=== PATIENT | male | born 1960 | race Caucasian/White ===

== ENCOUNTER 2018-12-30 20:03 | Emergency (ER) | payer OTHER ==
[~2018-12-30] VITALS: Ht 188 cm; Wt 72.6 kg
[~2018-12-30 20:03] MED LIST: ALBU90OI61 INH; LEVFLO500 PO; LOSA25 PO; LOSA50; Lopressor 25 mg25 MG PO; NICO21TP TOP
[2018-12-30 20:40] LABS: BASOPHILS ABSOLUTE AUTO 0.04 K/mm3 (0.00-0.23); BASOPHILS PERCENT AUTO 1 % (0-2); EOSINOPHILS ABSOLUTE AUTO 0.08 K/mm3 (0.00-0.68); EOSINOPHILS PERCENT AUTO 1 % (0-6); Hematocrit 53.5 % (37.0-53.0); Hemoglobin 17.5 g/dL (13.5-17.5); IMMATURE GRAN ABSOLUTE AUTO 0.02 K/mm3 (0.00-0.10); IMMATURE GRAN PERCENT AUTO 0 % (0-1); LYMPHOCYTES ABSOLUTE AUTO 1.74 K/mm3 (0.84-5.20); LYMPHOCYTES PERCENT AUTO 22 % (21-46); MONOCYTES ABSOLUTE AUTO 0.51 K/mm3 (0.16-1.47); MONOCYTES PERCENT AUTO 7 % (4-13); Mean Corpuscular HGB 28.5 pg (26.0-34.0); Mean Corpuscular HGB Conc 32.7 g/dL (31.5-36.5); Mean Corpuscular Volume 87 fL (80-100); Mean Platelet Volume 10.7 fL (9.1-12.4); NEUTROPHILS ABSOLUTE AUTO 5.41 K/mm3 (1.96-9.15); NEUTROPHILS PERCENT AUTO 69 % (41-73); Platelet Count 200 K/mm3 (150-400); RDW Coefficient Variation 14.1 % (11.7-14.2); RDW Standard Deviation 45.1 fL (35.1-46.3); Red Blood Cell Count 6.15 M/mm3 (4.30-5.90)
[2018-12-30 20:58] LABS: Albumin, Blood 3.8 g/dL (3.4-5.0); Bilirubin, Total 3.2 mg/dL (0.1-1.0); Bun/Creatinine Ratio 13.2 (12.0-20.0); Calcium, Blood 8.8 mg/dL (8.5-10.1); Creatinine, Blood 1.59 mg/dL (0.60-1.20); Globulin, Blood 3.8 g/dL (2.2-4.0); Potassium, Blood 3.8 mmol/L (3.5-5.5); Total Protein, Blood 7.6 g/dL (6.4-8.2)
== END 2018-12-30 23:00 | disposition left against medical advice (07) ==
LOC: ER 20:03
PROVIDERS: Physician Assistant
DX: R20.0 Anesthesia of skin (principal); Z53.20 Procedure and treatment not carried out because of patient's decision for unspecified reasons
CPT/HCPCS: 36415; 70450; 80053; 85025; 99284-25

== ENCOUNTER 2019-01-01 10:49 | Emergency (ER) | payer OTHER ==
[~2019-01-01] VITALS: Ht 185.4 cm; Wt 77.1 kg
[2019-01-01] MEDS ORDERED: LOSA50 PO (11:12)
[2019-01-01] MEDS ORDERED: ALBU90OI INH (11:13)
== END 2019-01-01 11:22 | disposition home or self-care (01) ==
LOC: ER 10:49
DX: I10 Essential (primary) hypertension (principal); J44.9 Chronic obstructive pulmonary disease, unspecified; F17.210 Nicotine dependence, cigarettes, uncomplicated
CPT/HCPCS: 99283

== ENCOUNTER 2019-01-18 21:26 | Emergency (ER) | payer OTHER ==
[~2019-01-18] VITALS: Ht 188 cm; Wt 74.8 kg
[~2019-01-18 21:26] MED LIST changes: +ALBU90OI INH; +LOSA50 PO
[2019-01-18 21:51] LABS: BASOPHILS ABSOLUTE AUTO 0.06 K/mm3 (0.00-0.23); BASOPHILS PERCENT AUTO 1 % (0-2); EOSINOPHILS ABSOLUTE AUTO 0.12 K/mm3 (0.00-0.68); EOSINOPHILS PERCENT AUTO 1 % (0-6); Hemoglobin 18.3 g/dL (13.5-17.5); IMMATURE GRAN ABSOLUTE AUTO 0.05 K/mm3 (0.00-0.10); IMMATURE GRAN PERCENT AUTO 0 % (0-1); LYMPHOCYTES ABSOLUTE AUTO 1.99 K/mm3 (0.84-5.20); LYMPHOCYTES PERCENT AUTO 18 % (21-46); MONOCYTES ABSOLUTE AUTO 0.93 K/mm3 (0.16-1.47); MONOCYTES PERCENT AUTO 8 % (4-13); Mean Corpuscular HGB 28.5 pg (26.0-34.0); Mean Corpuscular HGB Conc 32.7 g/dL (31.5-36.5); Mean Corpuscular Volume 87 fL (80-100); Mean Platelet Volume 10.9 fL (9.1-12.4); NEUTROPHILS PERCENT AUTO 72 % (41-73); Platelet Count 189 K/mm3 (150-400); RDW Coefficient Variation 14.1 % (11.7-14.2); RDW Standard Deviation 45.3 fL (35.1-46.3); Red Blood Cell Count 6.43 M/mm3 (4.30-5.90); White Blood Cell Count 11.35 K/mm3 (4.00-11.30)
[2019-01-18 22:09] LABS: Albumin, Blood 3.6 g/dL (3.4-5.0); Albumin/Globulin Ratio 0.9 (0.8-1.8); Bilirubin, Total 1.4 mg/dL (0.1-1.0); Calcium, Blood 8.7 mg/dL (8.5-10.1); Creatinine, Blood 1.53 mg/dL (0.60-1.20); Potassium, Blood 4.7 mmol/L (3.5-5.5); Total Protein, Blood 7.6 g/dL (6.4-8.2)
[2019-01-18] MEDS ORDERED: IBUP600 PO (22:46)
== END 2019-01-18 23:01 | disposition home or self-care (01) ==
LOC: ER 21:26
PROVIDERS: Emergency Medicine
DX: S42.401A Unspecified fracture of lower end of right humerus, initial encounter for closed fracture (principal); M77.01 Medial epicondylitis, right elbow; I10 Essential (primary) hypertension; F17.210 Nicotine dependence, cigarettes, uncomplicated; Z79.899 Other long term (current) drug therapy; X58.XXXA Exposure to other specified factors, initial encounter
CPT/HCPCS: 36415; 80053; 85025; 93005; 93010; 96372; 99283-25; J1885

== ENCOUNTER 2019-04-24 06:01 | Day surgery (SDC) | payer OTHER ==
[~2019-04-24] VITALS: Ht 188 cm; Wt 75.0 kg
[~2019-04-24 06:01] MED LIST changes: +IBUP600 PO
[2019-04-24] MEDS ORDERED: ELIQUIS2.5 MG PO (06:20)
[2019-04-24] MEDS ORDERED: AMLO10 PO (10:55)
[2019-04-24] MEDS ORDERED: LOSA50 PO (10:56)
--- NOTE | 2019-04-24 12:07 | NUR ---
PT DRESSED, IV DC'D INTACT, R WRIST SITE STABLE, WRIST SPLINT/DRESSING IN PLACE, PT KEEPING ARM ELEVATED, R GROIN SITE STABLE, PT CHOOSES TO AMBULATE OUT ON DC WITH FRIEND DRIVING PT HOME, SCRIPT CALLED TO LE[facility] BROWN
== END 2019-04-24 12:15 | disposition home or self-care (01) ==
LOC: MHTC 06:01
DX: I27.21 Secondary pulmonary arterial hypertension (principal); I13.10 Hypertensive heart and chronic kidney disease without heart failure, with stage 1 through stage 4 chronic kidney disease, or unspecified chronic kidney disease; N18.9 Chronic kidney disease, unspecified; R93.1 Abnormal findings on diagnostic imaging of heart and coronary circulation; J44.9 Chronic obstructive pulmonary disease, unspecified; F17.210 Nicotine dependence, cigarettes, uncomplicated
CPT/HCPCS: 93460; 99152; 99153; C1769; C1894; J0360; J1644; J2250; J3010; J7030; J7040; Q9967

== ENCOUNTER 2020-09-26 13:33 | Day surgery (SDC) | payer MEDICARE, OTHER ==
[~2020-09-26] VITALS: Ht 185.4 cm; Wt 77.4 kg
[~2020-09-26 13:33] MED LIST changes: +AMLO10 PO; +Bactrim Ds Tab1 EACH PO; +ELIQUIS2.5 MG PO; +ELIQUIS5 M3 PO; +Keflex500 MG PO; +OMEPRAZOLE CAP 20M; +TRAM50 PO
[2020-09-26] MEDS ORDERED: SELEXIPAG (14:15)
--- NOTE | 2020-09-26 14:51 | NUR ---
09/26/20 [id number] Rachel Mcbride PATENT VERY WITHDRAWN AND BARELY RESPONDS WHEN I ASK HIM QUESTIONS. HE TELLS ME HE JUST WANTS TO GET THIS DONE AND GO HOME. PATIENT HAS NO QUESTIONS. HE STATES HE IS COMFORTABLE AND HAS NO NEEDS AT THIS TIME
== END 2020-09-26 15:55 | disposition home or self-care (01) ==
LOC: ORSCSDS 13:33
PROVIDERS: Internal Medicine Gastroenterology
PROC: 0DBM8ZX Excision of Descending Colon, Via Natural or Artificial Opening Endoscopic, Diagnostic (ICD-10-PCS; principal; 2020-09-26 15:00)
PROC: 0DBN8ZX Excision of Sigmoid Colon, Via Natural or Artificial Opening Endoscopic, Diagnostic (ICD-10-PCS; principal; 2020-09-26 15:00)
PROC: 0DBL8ZX Excision of Transverse Colon, Via Natural or Artificial Opening Endoscopic, Diagnostic (ICD-10-PCS; principal; 2020-09-26 15:00)
DX: Z86.010 Personal history of colon polyps (principal); D12.3 Benign neoplasm of transverse colon; D12.4 Benign neoplasm of descending colon; K63.5 Polyp of colon; B19.20 Unspecified viral hepatitis C without hepatic coma; Z79.899 Other long term (current) drug therapy; I10 Essential (primary) hypertension; F17.210 Nicotine dependence, cigarettes, uncomplicated; I48.91 Unspecified atrial fibrillation; Z79.01 Long term (current) use of anticoagulants
CPT/HCPCS: 88305; J2704; J7120

== ENCOUNTER 2021-03-25 07:35 | Emergency (ER) | payer MEDICARE ==
[~2021-03-25] VITALS: Ht 188 cm; Wt 77.1 kg
[~2021-03-25 07:35] MED LIST changes: +SELEXIPAG
[2021-03-25] MEDS ORDERED: Cleocin HCl300 MG PO (08:08)
== END 2021-03-25 08:32 | disposition home or self-care (01) ==
LOC: ER 07:35
DX: L03.115 Cellulitis of right lower limb (principal); F17.200 Nicotine dependence, unspecified, uncomplicated; Z79.01 Long term (current) use of anticoagulants; Z79.899 Other long term (current) drug therapy
CPT/HCPCS: 99282